=== PATIENT | female | born 1965 | race Caucasian/White ===

== ENCOUNTER → 2019-09-15 | Outpatient (CLI) | payer SELFPAY ==
[~2019-09-15] MED LIST: ADDERALL5 MG PO; ATIVAN2 M1 PO; BENADRYL25 MG PO; CIPROFLOXACIN500 MG PO; MACROBID100 M1 PO; MEDROL DOSEPAK4 MG PO; MIRALAX POWDER17 G1 PO; MULTI VITAMINS1 TAB PO; NAPROSYN500 MG PO; PREDNISONE20 MG PO; TOPAMAX50 MG PO; VICODIN ES 7501 TAB PO; WELLBUTRIN SR150 MG PO; XANAX1 MG PO; Zofran4 MG PO
[2019-09-15 18:50] LABS: URINE AMPHETAMINES > 1000 (1000ng/ml); URINE BARBITURATES < 200 (200ng/ml); URINE BENZODIAZEPINES > 200 (200ng/ml); URINE CANNABINOIDS (THC) < 50 (50ng/ml); URINE COCAINE < 300 (300ng/ml); URINE METHADONE < 300 (300ng/ml); URINE OPIATES < 300 (300ng/ml)
[2019-09-15 18:51] LABS: URINE PHENCYCLIDINE < 25 (25ng/ml)
== END | disposition home or self-care (01) ==
LOC: LAB 17:53
PROVIDERS: Social Worker Clinical
DX: Z51.81 Encounter for therapeutic drug level monitoring (principal); Z79.899 Other long term (current) drug therapy